=== PATIENT | female | born 1970 | race Hispanic/Latino ===

== ENCOUNTER 2019-06-27 09:46 | Inpatient (IN) | payer SELFPAY ==
[~2019-06-27] VITALS: Ht 147.3 cm; Wt 77.1 kg
[2019-06-27] MEDS ORDERED: SODIUM CHLORIDE 0.9% 1000ML 1,000 ML IV ONE ×2 (10:41→11:33)
[2019-06-27 10:44] LABS: BASOPHILS % (AUTO) 0.4 % (0.0-5.0); EOSINOPHILS % (AUTO) 0.1 % (0.0-8.0); HEMATOCRIT 38.8 % (36-48); LYMPHOCYTES % (AUTO) 8.7 % (21.0-51.0); MEAN CORPUSCULAR HEMOGLOBIN 30.3 pg (27.0-33.0); MEAN CORPUSCULAR HGB CONC 34.9 g/dL (32.0-36.0); MEAN CORPUSCULAR VOLUME 86.8 fL (79-99); MONOCYTES % (AUTO) 6.2 % (3.0-13.0); NEUTROPHILS % (AUTO) 84.6 % (40.0-77.0); PLATELET COUNT (AUTO) 211 K/uL (130-400); RED BLOOD CELL COUNT(AUTO) 4.47 MIL/uL (4.00-5.50); RED CELL DISTRIBUTION WIDTH 12.3 % (11.0-15.5); WHITE BLOOD COUNT (AUTO) 14.3 K/uL (4.8-10.8)
[2019-06-27] MEDS ORDERED: ONDANSETRON HCL 4 MG/2 ML VIAL ONE (10:52)
[2019-06-27] MEDS ORDERED: MORPHINE SULFATE 4 MG/1ML SYG ONE (10:52)
[2019-06-27] MEDS ORDERED: ZOSYN 3.375GM+NS 50ML 50 ML IV ONE (11:19)
[2019-06-27 11:33] LABS: CREATININE 0.7 mg/dL (0.5-1.5); POTASSIUM 3.6 mmol/L (3.5-5.1)
[2019-06-27 11:40] LABS: ALBUMIN 3.9 g/dL (3.5-5.0); BILIRUBIN,TOTAL 0.6 mg/dL (0.2-1.0); MAGNESIUM 2.2 mg/dL (1.80-2.40)
[2019-06-27 11:50] LABS: CRP QUANTITATIVE 201.3 mg/L (0.00-9.0)
[2019-06-27 12:03] LABS: APPEARANCE,URINE Cloudy (CLEAR); BILIRUBIN,URINE Negative (NEGATIVE); COLOR,URINE Yellow (YELLOW); GLUCOSE, URINE (UA) Negative (NEGATIVE); KETONES,URINE 40 mg/dL (NEGATIVE); LEUKOCYTE ESTERASE ,URINE Large (NEGATIVE); NITRATE,URINE Negative (NEGATIVE); OCCULT BLOOD,URINE Small (NEGATIVE); PROTEIN,URINE Negative (NEGATIVE)
[2019-06-27] MEDS ORDERED: VANCOMYCIN 1GM+NS 250ML 250 ML IV ONE (12:10)
[2019-06-27 12:14] LABS: HEMOGLOBIN A1C 6.2 % (4.0-6.0)
[2019-06-27] MEDS ORDERED: ONDANSETRON HCL 4 MG/2 ML VIAL IV PRN (12:15)
[2019-06-27 12:27] LABS: INR 0.99 (0.85-1.15); PARTIAL THROMBOPLASTIN TIME 30.3 SEC (26.3-35.5); PROTHROMBIN TIME 10.4 SEC (9.6-11.6)
[2019-06-27] MEDS ORDERED: VANCOMYCIN PROTOCOL PER PHARMACY IV SCH (13:00)
[2019-06-27] MEDS ORDERED: DiphenhydrAMINE HCL 50 MG/ML VIAL ONE (13:05)
[2019-06-27 13:17] LABS: BACTERIA,URINE Moderate /HPF (None Seen)
[2019-06-27 16:00] VITALS: BP 125/64
--- NOTE | 2019-06-27 16:10 | NUR ---
TEMP 103.1, BC ORDERED. ICE AND TYLENOL GIVEN.
--- NOTE | 2019-06-27 16:20 | NUR ---
SERGEI AWARE OF =FEVER OF 103.1
[2019-06-27] MEDS: ZOSYN 3.375GM+NS 50ML 50 ML IV SCH (16:50)
[2019-06-27] MEDS: VANCOMYCIN 1GM+NS 250ML 250 ML IV SCH (16:51)
[2019-06-27] MEDS: ACETAMINOPHEN 325 MG TAB PO PRN (16:53)
[2019-06-27 20:04] VITALS: BP 92/53
[2019-06-27] MEDS: FAMOTIDINE 20MG TAB 20 MG TAB PO SCH (20:35)
[2019-06-28] VITALS (7 sets, daily range): BP systolic 113–139; BP diastolic 56–76
[2019-06-28] MEDS: ZOSYN 3.375GM+NS 50ML 50 ML IV SCH ×3 (00:19→17:32)
[2019-06-28] MEDS: VANCOMYCIN 1GM+NS 250ML 250 ML IV SCH ×2 (05:30→17:31)
[2019-06-28 06:23] LABS: BASOPHILS % (AUTO) 0.2 % (0.0-5.0); EOSINOPHILS % (AUTO) 0.2 % (0.0-8.0); HEMATOCRIT 33.5 % (36-48); LYMPHOCYTES % (AUTO) 10.9 % (21.0-51.0); MEAN CORPUSCULAR HEMOGLOBIN 31.6 pg (27.0-33.0); MEAN CORPUSCULAR HGB CONC 35.9 g/dL (32.0-36.0); MEAN CORPUSCULAR VOLUME 87.8 fL (79-99); MONOCYTES % (AUTO) 7.7 % (3.0-13.0); PLATELET COUNT (AUTO) 183 K/uL (130-400); RED BLOOD CELL COUNT(AUTO) 3.82 MIL/uL (4.00-5.50); RED CELL DISTRIBUTION WIDTH 12.3 % (11.0-15.5); WHITE BLOOD COUNT (AUTO) 12.5 K/uL (4.8-10.8)
[2019-06-28 06:34] LABS: CREATININE 0.7 mg/dL (0.5-1.5); POTASSIUM 3.2 mmol/L (3.5-5.1)
[2019-06-28] MEDS ORDERED: POTASSIUM CHLORIDE 10% ELIXIR 20 MEQ/15 ML UDCUP PO PRN (06:45)
[2019-06-28] MEDS ORDERED: POTASSIUM CHLORIDE 20MEQ/100ML 100 ML IV PRN (06:45)
[2019-06-28] MEDS ORDERED: LIDOCAINE HCL-MPF 1% 2ML VIAL IV PRN (06:45)
[2019-06-28] MEDS ORDERED: POTASSIUM CHLORIDE 20 MEQ ERTAB PO ONE (06:50)
[2019-06-28] MEDS: ENOXAPARIN SODIUM 30 MG/0.3 ML SQ SCH (08:45)
[2019-06-28] MEDS: FAMOTIDINE 20MG TAB 20 MG TAB PO SCH ×2 (08:45→20:34)
[2019-06-28] MEDS: ACETAMINOPHEN 325 MG TAB PO PRN ×2 (10:14→20:35)
[2019-06-28] MEDS: POTASSIUM CHLORIDE 20 MEQ ERTAB PO PRN (10:15)
--- NOTE | 2019-06-28 18:00 | NUR ---
INITIAL Met w pt this afternoon to discuss dcp. Pt mentions that she lives w her spouse. Prior to admission she was independent w ambulation and ADLs. She still drives where needed. Per pt she does not own any DME or receive services. Pt mentions she feels safe and comfortable to return home at ar. Low income packet provided to pt. CM to continue to follow and wait for MD recommendations. Addendum: 06/29/19 at 1802 by ELISE LEAHY Amended: Links added.
[2019-06-28] MEDS ORDERED: VANCOMYCIN 500MG+NS 100ML 100 ML IV SCH (21:00)
[2019-06-29] MEDS: ZOSYN 3.375GM+NS 50ML 50 ML IV SCH ×3 (00:27→16:04)
[2019-06-29 04:00] VITALS: BP 124/70
[2019-06-29 05:51] LABS: BASOPHILS % (AUTO) 0.4 % (0.0-5.0); EOSINOPHILS % (AUTO) 1.4 % (0.0-8.0); HEMATOCRIT 32.9 % (36-48); LYMPHOCYTES % (AUTO) 19.1 % (21.0-51.0); MEAN CORPUSCULAR HEMOGLOBIN 30.6 pg (27.0-33.0); MEAN CORPUSCULAR VOLUME 87.3 fL (79-99); NEUTROPHILS % (AUTO) 67.1 % (40.0-77.0); PLATELET COUNT (AUTO) 207 K/uL (130-400); RED BLOOD CELL COUNT(AUTO) 3.77 MIL/uL (4.00-5.50); RED CELL DISTRIBUTION WIDTH 12.3 % (11.0-15.5); WHITE BLOOD COUNT (AUTO) 7.9 K/uL (4.8-10.8)
[2019-06-29] MEDS: VANCOMYCIN 1GM+NS 250ML 250 ML IV SCH ×2 (05:56→20:22)
[2019-06-29 06:11] LABS: BILIRUBIN,TOTAL 0.6 mg/dL (0.2-1.0); CREATININE 0.6 mg/dL (0.5-1.5); POTASSIUM 3.5 mmol/L (3.5-5.1); TOTAL PROTEIN, SERUM 6.9 g/dL (6.0-8.3)
[2019-06-29] MEDS: POTASSIUM CHLORIDE 20 MEQ ERTAB PO PRN (06:21)
[2019-06-29 08:00] VITALS: BP 123/70
[2019-06-29] MEDS: ENOXAPARIN SODIUM 30 MG/0.3 ML SQ SCH (08:50)
[2019-06-29] MEDS: FAMOTIDINE 20MG TAB 20 MG TAB PO SCH ×2 (08:51→20:24)
[2019-06-29 11:00] VITALS: BP 123/66
[2019-06-29] MEDS ORDERED: MAGNESIUM CITRATE 296 ML SOLUTION PO SCH (12:45)
[2019-06-29 16:00] VITALS: BP 132/68
[2019-06-29] MEDS: ACETAMINOPHEN 325 MG TAB PO PRN (16:31)
[2019-06-29 19:15] VITALS: BP 118/71
[2019-06-29] MEDS: DOCUSATE SODIUM 100 MG CAP PO SCH (20:24)
[2019-06-29 23:25] VITALS: BP 132/82
[2019-06-30] MEDS: ZOSYN 3.375GM+NS 50ML 50 ML IV SCH ×2 (00:24→09:00)
[2019-06-30 03:39] VITALS: BP 129/66
[2019-06-30] MEDS: VANCOMYCIN 1GM+NS 250ML 250 ML IV SCH (05:54)
[2019-06-30] MEDS ORDERED: COMPOUND IV REFRIGERATED 1 EACH IVSOLN MISC PRN (07:00)
[2019-06-30 07:52] VITALS: BP 152/88
[2019-06-30] MEDS ORDERED: CLIN300C9 PO (08:22)
[2019-06-30] MEDS: DOCUSATE SODIUM 100 MG CAP PO SCH (08:44)
[2019-06-30] MEDS: FAMOTIDINE 20MG TAB 20 MG TAB PO SCH (08:44)
[2019-06-30] MEDS: ENOXAPARIN SODIUM 30 MG/0.3 ML SQ SCH (09:00)
--- NOTE | 2019-06-30 10:48 | NUR ---
DISCHARGE INSTRUCTION GIVEN AND PATIENT AND DAUGHTER VERBALIZED UNDERSTANDING , IV REMOVED WITH Catheter intact AND NEW MEDICATION REVIEWED WITH PATIENT, PATIENT GIVEN LIST OF LOCAL PROVIDERS FOR FOLLOW-UP WITH. NO QUESTIONS OR CONCERNS AT THIS TIME PATIENT TAKING BY WHEELCHAIR TO LOBBY AND LEFT WITH DAUGHTER FOR HOME.
[2019-06-30] MEDS ORDERED: VANCOMYCIN 750MG + NS 250 ML IV SCH ×2 (12:00)
== END 2019-06-30 10:55 | disposition home or self-care (01) | DRG 603 ==
LOC: EDH 09:46 → OBSVTOIN 09:47 → EDHIP 09:47 → UNDOADMOB 12:12 → EDHIP 12:12 → 4DH 15:28
PROVIDERS: ADMIT Hospitalist; ATTEND Hospitalist
DX: L03.115 Cellulitis of right lower limb (principal); E11.9 Type 2 diabetes mellitus without complications
CPT/HCPCS: 36415; 73590; 73620; 80048; 80053; 80202; 81001; 82550; 83036; 83605; 83735; 84484; 85025; 85610; 85651; 85730; 86140; 87040; 87088; 93005; 93971; G0378; J1200; J1650; J2270; J2405; J2543; J3370; J7030

== ENCOUNTER 2023-04-30 13:57 | Emergency (ER) | payer OTHER ==
[~2023-04-30] VITALS: Ht 147.3 cm; Wt 56.7 kg
[~2023-04-30 13:57] MED LIST: CLIN-141 PO
[2023-04-30] MEDS ORDERED: KETOROLAC 60 MG VIAL (30MG/ML) IM ONE (16:00)
[2023-04-30] MEDS ORDERED: HYDROCODONE/ACETAMINOPHEN 5/325 MG TAB PO ONE (16:00)
[2023-04-30 17:43] LABS: BASOPHILS # (AUTO) 0.02 K/uL (0.00-0.20); BASOPHILS % (AUTO) 0.3 % (0.0-5.0); EOSINOPHILS # (AUTO) 0.07 K/uL (0.00-0.70); IMMATURE GRANULOCYTE ABSOLUTE 0.02 K/uL (0-1); LYMPHOCYTES # (AUTO) 1.8 K/uL (1.0-4.8); MEAN CORPUSCULAR HEMOGLOBIN 30.2 pg (27.0-33.0); MEAN CORPUSCULAR HGB CONC 34.4 g/dL (32.0-36.0); MEAN CORPUSCULAR VOLUME 87.8 fL (79-99); MONOCYTES # (AUTO) 0.5 K/uL (0.1-1.0); MONOCYTES % (AUTO) 7.1 % (3.0-13.0); NEUTROPHILS # (AUTO) 4.4 K/uL (1.8-7.7); NEUTROPHILS % (AUTO) 65.3 % (40.0-77.0); PLATELET COUNT (AUTO) 256 K/uL (130-400); RED CELL DISTRIBUTION WIDTH 12.1 % (11.0-15.5); WHITE BLOOD COUNT (AUTO) 6.8 K/uL (4.8-10.8)
[2023-04-30 17:54] LABS: CREATININE 0.5 mg/dL (0.5-1.5); POTASSIUM 3.6 mmol/L (3.5-5.1)
[2023-04-30 17:57] LABS: ALBUMIN 3.7 g/dL (3.5-5.0); BILIRUBIN,TOTAL 0.3 mg/dL (0.2-1.0); TOTAL PROTEIN, SERUM 7.7 g/dL (6.0-8.3)
[2023-04-30] MEDS ORDERED: LIDOCAINE HCL 1% 20 ML VIAL INJ SCH (18:00)
[2023-04-30] MEDS ORDERED: LIDOCAINE 5% TOPICAL PATCH TP ONE (18:00)
[2023-04-30 18:05] LABS: APPEARANCE,URINE CLEAR (CLEAR); BILIRUBIN,URINE NEGATIVE (NEGATIVE); COLOR,URINE LIGHT-YELLOW (YELLOW); GLUCOSE, URINE (UA) NEGATIVE (NEGATIVE); KETONES,URINE NEGATIVE (NEGATIVE); LEUKOCYTE ESTERASE ,URINE NEGATIVE Leu/uL (NEGATIVE); NITRATE,URINE NEGATIVE (NEGATIVE); OCCULT BLOOD,URINE NEGATIVE (NEGATIVE); PH,URINE 5.5 (5.0-8.0); PROTEIN,URINE NEGATIVE (NEGATIVE); UROBILINOGEN,URINE 0.2 mg/dL (0.2-1.0)
[2023-04-30 18:07] LABS: ADD UA MICROSCOPIC YES
[2023-04-30 18:09] LABS: B-TYPE NATRIURETIC PEPTIDE 61 pg/mL (0-100)
[2023-04-30 18:09] LABS: BACTERIA,URINE RARE /HPF (None Seen); MUCUS,URINE FEW LPF (None Seen); RBC,URINE 0-1 /HPF (0-1); SQUAMOUS EPITHELIAL CELL,UR RARE /HPF (0-2)
[2023-04-30 19:32] VITALS: BP 152/70; PULSE 70; RESP 16; O2SAT 98
== END 2023-04-30 20:09 | disposition home or self-care (01) ==
LOC: EDH 13:57
DX: M19.012 Primary osteoarthritis, left shoulder (principal); E78.00 Pure hypercholesterolemia, unspecified; E11.9 Type 2 diabetes mellitus without complications
CPT/HCPCS: 99285; 20610; 93971; 71045; 82550; 84484; 80053; 83880; 85025; 85378; 81001; 36415; 73030; 96372; 93005; J1030; J1885

== ENCOUNTER 2023-12-09 15:00 | Emergency (ER) | payer SELFPAY ==
[~2023-12-09] VITALS: Ht 147.3 cm; Wt 68.0 kg
[2023-12-09] MEDS: ASPIRIN 325MG TAB PO ONE (15:28)
[2023-12-09] MEDS: KETOROLAC 15MG/ML VIAL (15MG/ML) IV ONE (15:46)
[2023-12-09 15:48] LABS: BASOPHILS # (AUTO) 0.05 K/uL (0.00-0.20); BASOPHILS % (AUTO) 0.6 % (0.0-5.0); EOSINOPHILS # (AUTO) 0.17 K/uL (0.00-0.70); HEMATOCRIT 40.7 % (36-48); IMMATURE GRANULOCYTE ABSOLUTE 0.04 K/uL (0-1); LYMPHOCYTES # (AUTO) 2.3 K/uL (1.0-4.8); LYMPHOCYTES % (AUTO) 27.2 % (21.0-51.0); MEAN CORPUSCULAR HEMOGLOBIN 29.8 pg (27.0-33.0); MEAN CORPUSCULAR HGB CONC 34.6 g/dL (32.0-36.0); MONOCYTES # (AUTO) 0.7 K/uL (0.1-1.0); MONOCYTES % (AUTO) 8.5 % (3.0-13.0); NEUTROPHILS # (AUTO) 5.1 K/uL (1.8-7.7); NEUTROPHILS % (AUTO) 61.2 % (40.0-77.0); PLATELET COUNT (AUTO) 298 K/uL (130-400); RED BLOOD CELL COUNT(AUTO) 4.73 MIL/uL (4.00-5.50); RED CELL DISTRIBUTION WIDTH 12.5 % (11.0-15.5); WHITE BLOOD COUNT (AUTO) 8.4 K/uL (4.8-10.8)
[2023-12-09 15:51] LABS: CREATININE 0.5 mg/dL (0.5-1.0); POTASSIUM 3.8 mmol/L (3.5-5.1)
[2023-12-09 15:56] LABS: ALBUMIN 4.1 g/dL (3.5-5.0); BILIRUBIN,TOTAL 0.3 mg/dL (0.2-1.0)
[2023-12-09] MEDS ORDERED: CYCL5TAB PO (16:50)
[2023-12-09] MEDS ORDERED: TRAM-355 PO (16:50)
[2023-12-09] MEDS: CYCLOBENZAPRINE HCL 10 MG TABLET PO ONE (17:00)
[2023-12-09 17:17] VITALS: BP 136/75; PULSE 67; RESP 18; O2SAT 36
== END 2023-12-09 18:03 | disposition home or self-care (01) ==
LOC: EDH 15:00
DX: M19.012 Primary osteoarthritis, left shoulder (principal); M62.838 Other muscle spasm; R07.89 Other chest pain
CPT/HCPCS: 99285; 96374; 72125; 71045; 83735; 84484 ×2; 80053; 83880; 85025; 85378; 36415; 93005 ×2; J1885